=== PATIENT | male | born 1965 | race Caucasian/White ===

== ENCOUNTER 2022-06-18 11:30 | Outpatient (CLI) | payer OTHER, SELFPAY ==
[2022-06-18 13:51] LABS: Albumin* 4.6 g/dL (3.3-5.0); Chloride* 107 mmol/L (96-114)
[2022-06-18 13:52] LABS: Potassium* 4.4 mmol/L (3.6-5.1); Sodium* 143 mmol/L (135-149)
[2022-06-18 13:54] LABS: Alkaline Phosphatase* 80 U/L (40-150); Aspartate Amino Transferase* 51 U/L (12-35); Bilirubin Total* 0.9 mg/dL (0.1-1.5); Blood Urea Nitrogen* 13 mg/dL (7-30); Carbon Dioxide* 29 mmol/L (20-32); Cholesterol* 239 mg/dL (90-199); Creatinine* 1.1 mg/dL (0.5-1.5); Estimated Glomerular Filt Rate 79 ml/min; Total Protein* 7.5 g/dL (6.0-8.3)
[2022-06-18 13:55] LABS: Alanine Aminotransferase* 98 U/L (4-50); Calcium* 9.6 mg/dL (8.4-10.6); Glucose* 136 mg/dL (60-115); HDL Cholesterol* 38 mg/dL (>=40); LDL Cholesterol Calculated 151 mg/dL (<100); Triglycerides* 252 mg/dL (40-149)
[2022-06-18 14:08] LABS: Vitamin D 25 Hydroxy* 38 ng/mL (30-80)
[2022-06-18 14:13] LABS: Microalbumin Urine 4 mg/dL
[2022-06-18 14:41] LABS: Creatinine Urine 383.9 mg/dL; Microalbumin Creatinine Ratio 10 mg/g (0-30)
[2022-06-19 14:55] LABS: Sex Hormone Binding Globulin 30 nmol/L (19-76); Testosterone, Adult Male 266 ng/dL (300-890); Testosterone, Free Calculation 50 pg/mL (47-244); Testosterone, Percentage Free 1.9 % (1.6-2.9)
[2022-06-19 16:14] LABS: Prostate Specific Antigen Free <0.1 ng/mL; Prostate Specific AntigenTotal <0.1 ng/mL (0.0-4.0)
== END 2022-06-18 11:31 | disposition home or self-care (01) ==
PROVIDERS: PCP Family Medicine; Visit Provider Family Medicine
DX: R03.0 Elevated blood-pressure reading, without diagnosis of hypertension (principal); R53.83 Other fatigue; E78.5 Hyperlipidemia, unspecified; Z13.1 Encounter for screening for diabetes mellitus; Z90.79 Acquired absence of other genital organ(s)
CPT/HCPCS: 80053; 80061; 82043; 82306; 82570; 84153; 84154; 84270; 84402; 84403

== ENCOUNTER 2022-07-08 08:23 | Outpatient (CLI) | payer OTHER, SELFPAY | END 2022-07-08 08:24 | disposition home or self-care (01) | LOC: NFLDREF 07-09 12:16 | PROVIDERS: PCP Family Medicine; Referring Provider Family Medicine; Visit Provider Family Medicine | DX: E29.1 Testicular hypofunction (principal); R53.83 Other fatigue | CPT/HCPCS: 83001; 83002; 83540; 83550; 84146; 84270; 84402; 84403; 84443 ==

== ENCOUNTER 2023-09-17 14:21 | Outpatient (CLI) | payer OTHER, SELFPAY ==
--- OUTSIDE RECORDS SUMMARY | 2023-09-17 14:23 | XMS_ITS | Continuity of Care Document ---
Author Organization [address] [id number] Insurance Providers Payer Plan Claims Address Claims Phone Policy Number Group Number Relation Employer Guarantor Name Guarantor Guarantor Address Guarantor Phone [facility] [facility] [address] [address], [place] [address] tel:[phone] [id number] [phone] [id number] [phone] Self Jonh Parsons [address] [place] [address] [employer] C[employer] tel:[phone] [phone] Self Jonh Parsons [address] [place], [place] [id number] Problems Condition ICD9 code ICD10 code SNOMED code Start Date End Date S tatus Rash and other nonspecific skin eruption R21 Admitting Results No Results Allergies, adverse reactions, alerts No known allergies and adverse reactions Medications No administered medications reported Vital Signs No vital signs reported Social History No smoking Hx information available
[2023-09-18 00:16] LABS: Chlamydia DNA Amplified* NOT DETECTED (No Detected); GC DNA Amplified* NOT DETECTED (No Detected)
== END 2023-09-17 14:22 | disposition home or self-care (01) ==
PROVIDERS: PCP Family Medicine; Visit Provider Physician Assistant Medical
DX: R21 Rash and other nonspecific skin eruption (principal)
CPT/HCPCS: 80053; 87491; 87591

== ENCOUNTER 2023-10-06 09:55 | Outpatient (CLI) | payer OTHER, SELFPAY ==
--- OUTSIDE RECORDS SUMMARY | 2023-10-06 09:58 | XMS_ITS | Continuity of Care Document ---
Author Organization [address], [place] [address] Insurance Providers Payer Plan Claims Address Claims Phone Policy Number Group Number Relation Employer Guarantor Name Guarantor Guarantor Address Guarantor Phone [employer] [facility] [employer] [address] [address], [place] [address] tel:[phone] [id number] [phone] Self Jonh Parsons [address] [place] [address] [employer] C[employer] tel:[phone] [id number] 00 Self Jonh Parsons [address] [place] [address] Problems Condition ICD9 code ICD10 code SNOMED code Start Date End Date S tatus Rash and other nonspecific skin eruption R21 Admitting Rash and other nonspecific skin eruption R21 Final Rash and other nonspecific skin eruption R21 Final Results No Results Allergies, adverse reactions, alerts No known allergies and adverse reactions Medications No administered medications reported Vital Signs No vital signs reported Social History No smoking Hx information available
[2023-10-06 14:48] LABS: Lab Add On Test New Spec Needed
== END 2023-10-06 09:56 | disposition home or self-care (01) ==
PROVIDERS: PCP Physician Assistant Medical; Visit Provider Physician Assistant Medical
DX: D58.2 Other hemoglobinopathies (principal); D72.829 Elevated white blood cell count, unspecified; E29.1 Testicular hypofunction; R73.03 Prediabetes; E78.5 Hyperlipidemia, unspecified; R74.8 Abnormal levels of other serum enzymes
CPT/HCPCS: 80061; 81270; 82668; 82728; 82746; 83540; 83550; 84165

== ENCOUNTER 2023-10-30 11:00 | Outpatient (CLI) | payer OTHER, SELFPAY ==
--- OUTSIDE RECORDS SUMMARY | 2023-10-30 11:03 | XMS_ITS | Continuity of Care Document ---
Author Organization [address], [place] [address] Insurance Providers Payer Plan Claims Address Claims Phone Policy Number Group Number Relation Employer Guarantor Name Guarantor Guarantor Address Guarantor Phone [employer] [facility] [employer] [address] [address], [place] [address] tel:[phone] [id number] [id number] Self Jonh Parsons [address] [place] [address] [employer] C[employer] tel:[phone] [phone] [id number] 00 Self Jonh Parsons [address] [place] [address] Problems Condition ICD9 code ICD10 code SNOMED code Start Date End Date S tatus Rash and other nonspecific skin eruption R21 Admitting Rash and other nonspecific skin eruption R21 Final Rash and other nonspecific skin eruption R21 Final Elevated white blood cell count, unspecified D72.829 F inal 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
--- NOTE | 2023-10-30 12:15 | W.ANESCHARGE ---
Anesthesia Charges Start Date/Time Anesthesia Start Date: 10/30/23 Anesthesia Start Time: 11:47 Stop Date/Time Anesthesia Stop Date: 10/30/23 Anesthesia Stop Time: 12:17
--- NOTE | 2023-10-30 12:30 | W.ANESCHARGE ---
Anesthesia Charges Start Date/Time Anesthesia Start Date: 10/30/23 Anesthesia Start Time: 11:47 Stop Date/Time Anesthesia Stop Date: 10/30/23 Anesthesia Stop Time: 12:17
== END 2023-10-30 11:01 | disposition home or self-care (01) ==
LOC: OP CLINIC 11:01
PROVIDERS: PCP Physician Assistant Medical; Visit Provider Internal Medicine
DX: Z12.11 Encounter for screening for malignant neoplasm of colon (principal)
CPT/HCPCS: 00811; 45378; J2704